=== PATIENT | female | born 1975 | race American Indian/Alaskan Native ===

== ENCOUNTER 2020-09-20 18:36 | Emergency (ER) | payer SELFPAY ==
[2020-09-20 18:44] VITALS: BP 117/63
--- NOTE | 2020-09-20 18:53 | Event Note ---
ED Screening Note ED Screening Note: BG 470 at home has not had her insulin since March units at night ozembic weekly states she moved here from [place] and has not set up PCP in [place] no n/v/d no fever no recent illness states she had some lightheadedness and knew her sugar was high allergy: sulfa hysterectomy This initial assessment/diagnostic orders/clinical plan/treatment(s) is/are subject to change based on patients health status, clinical progression and re- assessment by fellow clinical providers in the ED. Further treatment and workup at subsequent clinical providers discretion. Patient/guardian urged not to elope from the ED as their condition may be serious if not clinically assessed and managed. Initial orders include: labs, UA
[2020-09-20 19:36] LABS: Basophils % (Auto) 0.8 % (0.0-1.8); Eosinophils % (Auto) 0.9 % (0.0-4.3); Hematocrit 39.8 % (30.3-42.9); Hemoglobin 13.2 gm/dl (10.1-14.3); Lymphocytes # (Auto) 2.3 K/mm3 (1.2-5.4); Lymphocytes % (Auto) 48.1 % (13.4-35.0); Mean Corpuscular HGB Conc 33 % (30-34); Mean Corpuscular Volume 86 fl (79-97); Monocytes # (Auto) 0.4 K/mm3 (0.0-0.8); Monocytes % (Auto) 9.2 % (0.0-7.3); Platelet Count 269 K/mm3 (140-440); Red Blood Count 4.66 M/mm3 (3.65-5.03); Red Cell Distribution Width 13.6 % (13.2-15.2)
[2020-09-20 19:40] LABS: Bacteria,Urine 1+ /HPF (Negative); Bilirubin,Urine NEG (Negative); Blood,Urine NEG (Negative); Color,Urine Yellow (Yellow); Mucus,Urine FEW /HPF; Protein,Urine <15 mg/dL mg/dL (Negative); Urobilinogen,Urine < 2.0 mg/dL (<2.0)
[2020-09-20 19:44] LABS: Alanine Aminotransferase 23 units/L (7-56); Albumin 3.8 g/dL (3.9-5); BUN/Creatinine Ratio 12; Blood Urea Nitrogen 12 mg/dL (7-17); Hemolysis Index 3
[2020-09-20] MEDS ORDERED: INSULIN REGULAR, HUMAN 100 UNITS/1 ML IV ONE (19:52)
[2020-09-20] MEDS ORDERED: SODIUM CHLORIDE 0.9% 1000 ML 1,000 ML IV ONE (19:52)
--- NOTE | 2020-09-20 20:25 | Emergency Department Report ---
- General Chief complaint: Hyperglycemia Stated complaint: BLOOD GLUCOSE LEVEL HIGH Time Seen by Provider: 09/20/20 18:50 Source: patient Mode of arrival: Ambulatory Limitations: No Limitations - History of Present Illness Initial comments: This is a 45-year-old female nontoxic, well nourished in appearance, no acute signs of distress presents to the ED with c/o of generalized weakness and dizziness x1 day. Patient stated she has been out of her insulin the past few months due to no primary care doctor and just moved from [place]. Patient stated with symptoms of dizziness occurs it is related to her glucose being elevated. Patient that her fingerstick at home was in the high 400s. Denies taking any medication for this prior to arrival to the ED. Patient denies any headache or head trauma. Patient stated the dizziness is worsened with position change. Patient denies any numbness, tingling, headache, stiff neck, chest pain, shortness of breathe, numbness or tingling. Denies any visual changes or blurry vision. Said allergies to sulfa. MD Complaint: generalized weakness -: days(s) Location: generalized Severity scale (0 -10): 0 Consistency: intermittent Improves with: none Worsens with: none Associated Symptoms: denies other symptoms. denies: chest pain, confusion, dark stools, diaphoresis, dysuria, easy bruising, fever/chills, headaches, loss of appetite, nausea/vomiting, myalgias, rash, shortness of breath, syncope - Related Data Previous Rx's Medication Instructions Recorded Last Taken Type Insulin Glargine,Hum.rec.anlog 55 unit SQ HS 30 Days #1 box 09/20/20 Unknown Rx [Basaglar Kwikpen U-100] Semaglutide [Ozempic] 0.25 mg SQ QWEEK #4 pen.injctr 09/20/20 Unknown Rx Allergies Allergy/AdvReac Type Severity Reaction Status Date / Time Sulfa (Sulfonamide Allergy Swelling Verified 09/20/20 18:40 Antibiotics) ED Review of Systems ROS: Stated complaint: BLOOD GLUCOSE LEVEL HIGH Other details as noted in HPI Comment: All other systems reviewed and negative Constitutional: denies: chills, fever Eyes: denies: eye pain, eye discharge, vision change ENT: denies: ear pain, throat pain Respiratory: denies: cough, shortness of breath, wheezing Cardiovascular: denies: chest pain, palpitations Endocrine: no symptoms reported Gastrointestinal: denies: abdominal pain, nausea, diarrhea Genitourinary: denies: urgency, dysuria, discharge Musculoskeletal: denies: back pain, joint swelling, arthralgia Skin: denies: rash, lesions Neurological: weakness, vertigo. denies: headache, numbness, paresthesias, confusion, abnormal gait Psychiatric: denies: anxiety, depression Hematological/Lymphatic: denies: easy bleeding, easy bruising ED Past Medical Hx - Past Medical History Hx Diabetes: Yes Hx Asthma: Yes Additional medical history: SARCODOSIS - Surgical History Hx Pacemaker: Yes Hx Internal Defibrillator: Yes - Social History Smoking Status: Never Smoker Substance Use Type: None - Medications Home Medications: Home Medications Medication Instructions Recorded Confirmed Last Taken Type Insulin Glargine,Hum.rec.anlog 55 unit SQ HS 30 Days #1 box 09/20/20 Unknown Rx [Basaglar Kwikpen U-100] Semaglutide [Ozempic] 0.25 mg SQ QWEEK #4 pen.injctr 09/20/20 Unknown Rx ED Physical Exam - General Limitations: No Limitations General appearance: alert, in no apparent distress - Head Head exam: Present: atraumatic, normocephalic - Eye Eye exam: Present: normal appearance, PERRL, EOMI - ENT ENT exam: Present: normal exam, normal orophraynx - Neck Neck exam: Present: normal inspection, full ROM. Absent: tenderness, meningismus, lymphadenopathy - Respiratory Respiratory exam: Present: normal lung sounds bilaterally. Absent: respiratory distress, wheezes, rales, rhonchi, stridor, chest wall tenderness, accessory muscle use, decreased breath sounds, prolonged expiratory - Cardiovascular Cardiovascular Exam: Present: regular rate, normal rhythm, normal heart sounds. Absent: bradycardia, tachycardia, irregular rhythm, systolic murmur, diastolic murmur, rubs, gallop - GI/Abdominal GI/Abdominal exam: Present: soft, normal bowel sounds. Absent: distended, tenderness, guarding, rebound, rigid, diminished bowel sounds - Extremities Exam Extremities exam: Present: normal inspection, full ROM - Back Exam Back exam: Present: normal inspection, full ROM. Absent: tenderness, CVA tenderness (R), CVA tenderness (L), muscle spasm, paraspinal tenderness, vertebral tenderness, rash noted - Neurological Exam Neurological exam: Present: alert, oriented X3, normal gait - Expanded Neurological Exam Expanded Patient oriented to: Present: person, place, time Cranial nerves: EOM's Intact: Normal, Facial Sensation: Normal Cerebellar function: Finger to Nose: Normal Upper motor neuron: Sensory Extinction: Normal Motor strength exam: RUE: 5, LUE: 5, RLE: 5, LLE: 5 Best Eye Response (Fabio): (4) open spontaneously Best Motor Response ([place]): (6) obeys commands Best Verbal Response ([place]): (5) oriented Fabio Total: 15 - Psychiatric Psychiatric exam: Present: normal affect, normal mood - Skin Skin exam: Present: warm, dry, intact, normal color. Absent: rash - Level of Consciousness 1a. Level of Consciousness: alert/keenly responsive - LOC Questions 1b. LOC Questions: answers both correctly - LOC Command 1c. LOC Commands: performs tasks correctly - Best Gaze 2. Best Gaze: normal - Visual 3. Visual: no visual loss - Facial Palsy 4. Facial Palsy: normal symmetrical movement - Motor Arm 5a. Motor Arm Left: no drift 5b. Motor Arm Right: no drift - Motor Leg 6a. Motor Leg Left: no drift 6b. Motor Leg Right: no drift - Limb Ataxia 7. Limb Ataxia: absent - Sensory 8. Sensory: normal - Best Language 9. Best Language: no aphasia - Dysarthria 10. Dysarthria: normal - Extinction and Inattention 11. Extinction/Inattention: no abnormality - Scoring Total Score: 0 Stroke Severity: No Stroke Symptoms ED Course Vital Signs 09/20/20 09/20/20 18:40 20:56 Temperature 98 F Pulse Rate 68 Respiratory 20 18 Rate Blood Pressure 117/63 O2 Sat by Pulse 96 Oximetry - Reevaluation(s) Reevaluation #1: 09/20/20 20:23 Patient is speaking in full sentences with no signs of distress noted. ED Medical Decision Making - Lab Data Result diagrams: 09/20/20 19:13 09/20/20 19:13 Lab Results 09/20/20 09/20/20 09/20/20 Range/Units 18:44 19:13 19:13 WBC 4.8 (4.5-11.0) K/mm3 RBC 4.66 (3.65-5.03) M/mm3 Hgb 13.2 (10.1-14.3) gm/dl Hct 39.8 (30.3-42.9) % MCV 86 (79-97) fl MCH 28 (28-32) pg MCHC 33 (30-34) % RDW 13.6 (13.2-15.2) % Plt Count 269 (140-440) K/mm3 Lymph % (Auto) 48.1 H (13.4-35.0) % [place] % (Auto) 9.2 H (0.0-7.3) % Eos % (Auto) 0.9 (0.0-4.3) % Baso % (Auto) 0.8 (0.0-1.8) % Lymph # (Auto) 2.3 (1.2-5.4) K/mm3 [place] # (Auto) 0.4 (0.0-0.8) K/mm3 Eos # (Auto) 0.0 (0.0-0.4) K/mm3 Baso # (Auto) 0.0 (0.0-0.1) K/mm3 Seg Neutrophils % 41.0 (40.0-70.0) % Seg Neutrophils # 2.0 (1.8-7.7) K/mm3 VBG pH (7.320-7.420) Sodium 134 L (137-145) mmol/L Potassium 4.0 (3.6-5.0) mmol/L Chloride 97.5 L (98-107) mmol/L Carbon Dioxide 27 (22-30) mmol/L Anion Gap 14 mmol/L BUN 12 (7-17) mg/dL Creatinine 1.0 (0.6-1.2) mg/dL Estimated GFR > 60 ml/min BUN/Creatinine Ratio 12 % Glucose 290 H (65-100) mg/dL POC Glucose 300 H (70-105) mg/dL Calcium 9.0 (8.4-10.2) mg/dL Total Bilirubin 0.30 (0.1-1.2) mg/dL AST 19 (5-40) units/L ALT 23 (7-56) units/L Alkaline Phosphatase 96 (35-129) units/L Total Protein 7.9 (6.3-8.2) g/dL Albumin 3.8 L (3.9-5) g/dL Albumin/Globulin Ratio 0.9 % Urine Color (Yellow) Urine Turbidity (Clear) Urine pH (5.0-7.0) Ur Specific [place] (1.003-1.030) Urine Protein (Negative) mg/dL Urine Glucose (UA) (Negative) mg/dL Urine Ketones (Negative) mg/dL Urine Blood (Negative) Urine Nitrite (Negative) Urine Bilirubin (Negative) Urine Urobilinogen (<2.0) mg/dL Ur Leukocyte Esterase (Negative) Urine WBC (Auto) (0.0-6.0) /HPF Urine RBC (Auto) (0.0-6.0) /HPF U Epithel Cells (Auto) (0-13.0) /HPF Urine Bacteria (Auto) (Negative) /HPF Urine Mucus /HPF 09/20/20 09/20/20 Range/Units 19:13 Unknown WBC (4.5-11.0) K/mm3 RBC (3.65-5.03) M/mm3 Hgb (10.1-14.3) gm/dl Hct (30.3-42.9) % MCV (79-97) fl MCH (28-32) pg MCHC (30-34) % RDW (13.2-15.2) % Plt Count (140-440) K/mm3 Lymph % (Auto) (13.4-35.0) % [place] % (Auto) (0.0-7.3) % Eos % (Auto) (0.0-4.3) % Baso % (Auto) (0.0-1.8) % Lymph # (Auto) (1.2-5.4) K/mm3 [place] # (Auto) (0.0-0.8) K/mm3 Eos # (Auto) (0.0-0.4) K/mm3 Baso # (Auto) (0.0-0.1) K/mm3 Seg Neutrophils % (40.0-70.0) % Seg Neutrophils # (1.8-7.7) K/mm3 VBG pH 7.349 (7.320-7.420) Sodium (137-145) mmol/L Potassium (3.6-5.0) mmol/L Chloride (98-107) mmol/L Carbon Dioxide (22-30) mmol/L Anion Gap mmol/L BUN (7-17) mg/dL Creatinine (0.6-1.2) mg/dL Estimated GFR ml/min BUN/Creatinine Ratio % Glucose (65-100) mg/dL POC Glucose (70-105) mg/dL Calcium (8.4-10.2) mg/dL Total Bilirubin (0.1-1.2) mg/dL AST (5-40) units/L ALT (7-56) units/L Alkaline Phosphatase (35-129) units/L Total Protein (6.3-8.2) g/dL Albumin (3.9-5) g/dL Albumin/Globulin Ratio % Urine Color Yellow (Yellow) Urine Turbidity Slightly-cloudy (Clear) Urine pH 5.0 (5.0-7.0) Ur Specific [place] 1.029 (1.003-1.030) Urine Protein <15 mg/dl (Negative) mg/dL Urine Glucose (UA) >=500 (Negative) mg/dL Urine Ketones Neg (Negative) mg/dL Urine Blood Neg (Negative) Urine Nitrite Neg (Negative) Urine Bilirubin Neg (Negative) Urine Urobilinogen < 2.0 (<2.0) mg/dL Ur Leukocyte Esterase Neg (Negative) Urine WBC (Auto) 2.0 (0.0-6.0) /HPF Urine RBC (Auto) 4.0 (0.0-6.0) /HPF U Epithel Cells (Auto) 19.0 H (0-13.0) /HPF Urine Bacteria (Auto) 1+ (Negative) /HPF Urine Mucus Few /HPF - Medical Decision Making This is a 45-year-old female that presents with dizziness with noncompliant with insulin medications. Patient is stable and was examined by me. Labs are unremarkable. Urine obtained. Patient received 1 L of normal saline which she stated his symptoms of dizziness has subsided and resolved. Finger stock decreased to 193 prior to discharge. Will refill patients medication which she told me which ones and dosage. Patient is neurologically stable. Patient was instructed to Follow-up with a primary care doctor in 3-5 days or if symptoms worsen and continue return to emergency room as soon as possible. At time of discharge, the patient does not seem toxic or ill in appearance. No acute signs of distress noted. Patient agrees to discharge treatment plan of care. No further questions noted by the patient. Critical care attestation.: If time is entered above; I have spent that time in minutes in the direct care of this critically ill patient, excluding procedure time. ED Disposition Clinical Impression: Dizziness, Noncompliance with diabetes treatment, Hyperglycemia Disposition: DC- TO HOME OR SELFCARE Is pt being admited?: No Does the pt Need Aspirin: No Condition: Stable Instructions: Hyperglycemia, [id number], Dizziness Additional Instructions: Follow-up with a primary care doctor in 3-5 days or if symptoms worsen and continue return to emergency room as soon as possible. Prescriptions: Insulin Glargine,Hum.rec.anlog [Basaglar Kwikpen U-100] 55 unit SQ HS 30 Days #1 box Semaglutide [Ozempic] 0.25 mg SQ QWEEK #4 pen.injctr Referrals: [facility] MD DONATO [Primary Care Provider] - 3-5 Days PRIMARY CAREMD [Referring] - 3-5 Days FRANCINE FRANCISCO MD [Staff Physician] - 3-5 Days [facility] [place][Note 3] [Outside] - 3-5 Days [facility] [Provider Group] - 3-5 Days Time of Disposition: 21:12
== END 2020-09-20 21:42 | disposition home or self-care (01) ==
LOC: ED 18:36
DX: E11.65 Type 2 diabetes mellitus with hyperglycemia (principal); R42 Dizziness and giddiness; J45.909 Unspecified asthma, uncomplicated; Z79.899 Other long term (current) drug therapy; Z88.2 Allergy status to sulfonamides; Z95.0 Presence of cardiac pacemaker; Z91.19 Patient's noncompliance with other medical treatment and regimen
CPT/HCPCS: 36415; 80053; 81001; 82805; 82962; 85025; 96360; 99283; J7030; J1815

== ENCOUNTER 2021-11-01 13:47 | Emergency (ER) | payer SELFPAY ==
[2021-11-01] MEDS ORDERED: SODIUM CHLORIDE 0.9% 1000 ML 2,000 ML IV ONE (15:22)
--- NOTE | 2021-11-01 15:30 | Emergency Department Report ---
ED General Adult HPI - General Chief complaint: Weakness Stated complaint: WEAKNESS/SOB PUI?: No Time Seen by Provider: 11/01/21 15:18 Source: patient, EMS ( EMS documentation not available at time of chart dictation ), RN notes reviewed Mode of arrival: Stretcher Limitations: No Limitations - History of Present Illness Initial comments: This patient is a pleasant cooperative 46-year-old female, who has a history of hysterectomy, prophylactic AICD in place, distant history of V. tach, currently follow-up with [facility] cardiology, also has a history of diabetes, hypertension, currently maintained on isosorbide mononitrate metoprolol, lisinopril, presents to the ER today with complaint of lightheadedness, dizziness and near syncope. This happened while she was in the bathroom. She denies physical pain. She denies travel, surgery, immobilization, DVT/PE risk factors. She denies hematemesis and bright red blood per rectum. She feels mildly short of breath which is new for her. She does report chronic sarcoid, but feels like her shortness of breath feels "different." During the history and physical examination, I am chaperoned by nurse Carly Richmond -: Sudden Severity scale (0 -10): 0 Consistency: constant Improves with: rest Worsens with: movement - Related Data Previous Rx's Medication Instructions Recorded Last Taken Type Insulin Glargine,Hum.rec.anlog 55 unit SQ HS 30 Days #1 box 09/20/20 Unknown Rx [Basaglar Kwikpen U-100] Semaglutide [Ozempic] 0.25 mg SQ QWEEK #4 pen.injctr 09/20/20 Unknown Rx Allergies Allergy/AdvReac Type Severity Reaction Status Date / Time Sulfa (Sulfonamide Allergy Swelling Verified 11/01/21 13:53 Antibiotics) ED Review of Systems ROS: Stated complaint: WEAKNESS/SOB Other details as noted in HPI Constitutional: denies: fever Eyes: denies: eye discharge Respiratory: shortness of breath Cardiovascular: syncope (Lightheadedness and near syncope). denies: chest pain Gastrointestinal: denies: abdominal pain, hematemesis, melena, hematochezia Genitourinary: denies: dysuria Musculoskeletal: denies: back pain Neurological: weakness Hematological/Lymphatic: denies: easy bleeding ED Past Medical Hx - Past Medical History Hx Diabetes: Yes Hx Asthma: Yes Additional medical history: SARCODOSIS - Surgical History Hx Pacemaker: Yes Hx Internal Defibrillator: Yes - Social History Smoking Status: Never Smoker Substance Use Type: None - Medications Home Medications: Home Medications Medication Instructions Recorded Confirmed Last Taken Type Insulin Glargine,Hum.rec.anlog 55 unit SQ HS 30 Days #1 box 09/20/20 Unknown Rx [Basaglar Kwikpen U-100] Semaglutide [Ozempic] 0.25 mg SQ QWEEK #4 pen.injctr 09/20/20 Unknown Rx ED Physical Exam - General Limitations: No Limitations General appearance: alert, in no apparent distress - Head Head exam: Present: atraumatic, normocephalic - Eye Eye exam: Present: normal appearance, EOMI. Absent: nystagmus - ENT ENT exam: Present: normal exam, normal orophraynx, mucous membranes moist, normal external ear exam - Neck Neck exam: Present: normal inspection, full ROM. Absent: tenderness, meningismus - Respiratory Respiratory exam: Present: normal lung sounds bilaterally. Absent: respiratory distress, wheezes, rales, rhonchi, stridor, decreased breath sounds - Cardiovascular Cardiovascular Exam: Present: regular rate, normal rhythm, normal heart sounds. Absent: bradycardia, tachycardia, irregular rhythm, systolic murmur, diastolic murmur, rubs, gallop - GI/Abdominal GI/Abdominal exam: Present: soft. Absent: distended, tenderness, guarding, rebound, rigid, pulsatile mass - Extremities Exam Extremities exam: Present: normal inspection, full ROM, other (2+ pulses noted in the bilateral upper and lower extremities. There is no palpable cord. negative Homans sign. Muscular compartments are soft. The pelvis is stable.). Absent: pedal edema, calf tenderness - Back Exam Back exam: Present: normal inspection, full ROM. Absent: tenderness, CVA tenderness (R), CVA tenderness (L), paraspinal tenderness, vertebral tenderness - Neurological Exam Neurological exam: Present: alert, other (No facial droop. Tongue midline. Extraocular movements intact bilaterally. Facial sensation intact to light touch in V1, V2, V3 distribution bilaterally. 5 and a 5 strength in 4 extremities. Sensation intact to light touch in 4 extremities.). Absent: motor sensory deficit - Psychiatric Psychiatric exam: Present: normal affect, normal mood - Skin Skin exam: Present: warm, dry, intact, normal color. Absent: rash ED Course Vital Signs 11/01/21 11/01/21 11/01/21 13:50 15:04 15:15 Temperature 99.0 F Pulse Rate 72 66 69 Pulse Rate [ Lying] Pulse Rate [ Sitting] Pulse Rate [ Standing] Respiratory 16 19 27 H Rate Blood Pressure 87/56 Blood Pressure 85/54 [Left] Blood Pressure [Lying] Blood Pressure [Sitting] Blood Pressure [Standing] O2 Sat by Pulse 97 98 97 Oximetry 11/01/21 11/01/21 11/01/21 15:18 15:31 15:45 Temperature Pulse Rate 69 77 Pulse Rate [ 63 Lying] Pulse Rate [ 72 Sitting] Pulse Rate [ 84 Standing] Respiratory 15 14 Rate Blood Pressure 89/62 89/62 Blood Pressure [Left] Blood Pressure 93/59 [Lying] Blood Pressure 89/57 [Sitting] Blood Pressure 93/59 [Standing] O2 Sat by Pulse 100 95 94 Oximetry 11/01/21 11/01/21 11/01/21 16:01 16:15 16:31 Temperature Pulse Rate 70 77 80 Pulse Rate [ Lying] Pulse Rate [ Sitting] Pulse Rate [ Standing] Respiratory 11 L 19 15 Rate Blood Pressure 89/62 89/62 85/55 Blood Pressure [Left] Blood Pressure [Lying] Blood Pressure [Sitting] Blood Pressure [Standing] O2 Sat by Pulse 96 96 95 Oximetry 11/01/21 11/01/21 11/01/21 16:45 17:01 17:15 Temperature Pulse Rate 81 74 76 Pulse Rate [ Lying] Pulse Rate [ Sitting] Pulse Rate [ Standing] Respiratory 16 16 14 Rate Blood Pressure 85/55 92/59 92/59 Blood Pressure [Left] Blood Pressure [Lying] Blood Pressure [Sitting] Blood Pressure [Standing] O2 Sat by Pulse 95 97 78 L Oximetry 11/01/21 11/01/21 11/01/21 17:52 18:00 18:16 Temperature Pulse Rate 70 72 72 Pulse Rate [ Lying] Pulse Rate [ Sitting] Pulse Rate [ Standing] Respiratory 14 16 Rate Blood Pressure 94/60 94/60 Blood Pressure [Left] Blood Pressure [Lying] Blood Pressure [Sitting] Blood Pressure [Standing] O2 Sat by Pulse 95 97 Oximetry - Reevaluation(s) Reevaluation #1: 11/01/21 16:37 Differential diagnosis, including but not limited to: Orthostasis, vagal event, pulmonary embolism, structural cardiac disease, iatrogenic hypertension, acute coronary syndrome, arrhythmia Assessment and plan: 46-year-old female, who is afebrile, not currently tachycardic, tachypneic or hypoxic, denies DVT/PE risk factors, who is low risk by Wells criteria for pulmonary embolism, and PERC negative, coming with lightheadedness and near syncope, with hypotension. Placed patient on surg physician asst. Obtain appropriate laboratory studies. Chest x-ray clear. EKG nonspecific, but not consistent with STEMI. She has a [employer] ICD device, have requested that they come by and interrogate the device. Start IV fluids, reassess. Discussed this with the patient. She articulates understanding. She is agreeable to the plan of care. All questions answered. 11/01/21 17:27 D-dimer negative. Troponin negative. Chest x-ray clear. ICD interrogation unremarkable. Blood pressure currently 92 systolic. Patient updated. Repeat EKG, repeat troponin pending. Suspect orthostasis, likely secondary to multiple antihypertensives. Discussed this with the patient. Reassess after additional IV fluids, repeat troponin, and repeat EKG have been obtained 11/01/21 18:30 Patient reported to nursing team that her blood pressure "always runs low." Heart rate 72 bpm, blood pressure 100/73 mmHg. Troponin negative x2, and EKG unchanged from prior. 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 Not to drive or operate motor vehicles until cleared to do so by primary care or cardiology, discontinue all blood pressure medications, closely follow-up with outpatient primary care and cardiology. I discussed this with the patient. She articulates understanding. All questions answered. Return precautions are reviewed 11/01/21 18:49 Discussed the patient's history, physical, laboratory studies and imaging studies and clinical impression with cardiology on-call, Dr. Kemp. Advises that patient continue metoprolol, 25 mg once daily, but discontinue all other blood pressure medications. Patient advised to hold metoprolol for blood pressure less than 90 mmHg systolic, and advised to call [facility] first thing tomorrow morning to arrange close outpatient follow-up. Return precautions are reviewed. All questions answered Patient also advised to hold all blood pressure medications tonight 11/01/21 18:55 ED Medical Decision Making - Lab Data Result diagrams: 11/01/21 15:55 11/01/21 15:55 Vital Signs 11/01/21 11/01/21 11/01/21 13:50 15:04 15:15 Temperature 99.0 F Pulse Rate 72 66 69 Pulse Rate [ Lying] Pulse Rate [ Sitting] Pulse Rate [ Standing] Respiratory 16 19 27 H Rate Blood Pressure 87/56 Blood Pressure 85/54 [Left] Blood Pressure [Lying] Blood Pressure [Sitting] Blood Pressure [Standing] O2 Sat by Pulse 97 98 97 Oximetry 11/01/21 11/01/21 11/01/21 15:18 15:31 15:45 Temperature Pulse Rate 69 77 Pulse Rate [ 63 Lying] Pulse Rate [ 72 Sitting] Pulse Rate [ 84 Standing] Respiratory 15 14 Rate Blood Pressure 89/62 89/62 Blood Pressure [Left] Blood Pressure 93/59 [Lying] Blood Pressure 89/57 [Sitting] Blood Pressure 93/59 [Standing] O2 Sat by Pulse 100 95 94 Oximetry 11/01/21 16:01 Temperature Pulse Rate 70 Pulse Rate [ Lying] Pulse Rate [ Sitting] Pulse Rate [ Standing] Respiratory 11 L Rate Blood Pressure 89/62 Blood Pressure [Left] Blood Pressure [Lying] Blood Pressure [Sitting] Blood Pressure [Standing] O2 Sat by Pulse 96 Oximetry Lab Results 11/01/21 11/01/21 Range/Units 15:55 15:55 WBC 6.3 (4.5-11.0) K/mm3 RBC 4.58 (3.65-5.03) M/mm3 Hgb 12.7 (10.1-14.3) gm/dl Hct 39.1 (30.3-42.9) % MCV 85 (79-97) fl MCH 28 (28-32) pg MCHC 32 (30-34) % RDW 13.2 (13.2-15.2) % Plt Count 270 (140-440) K/mm3 PT 13.9 (12.2-14.9) Sec. INR 0.97 (0.87-1.13) - EKG Data -: EKG Interpreted by Nd EKG shows normal: sinus rhythm Rate: normal - EKG Data 11/01/21 16:33 The EKG is interpreted at 15: 08 Sinus rhythm 69 bpm. Left axis deviation, left anterior fascicular block, normal P wave axis, left ventricular voltage. QTC 4 3 3 ms. Abnormal EKG. Not a STEMI. No prior for comparison - Radiology Data Radiology results: pending, report reviewed, image reviewed CHEST 1 VIEW 11/01/2021 3:35 PM INDICATION / CLINICAL INFORMATION: dtspnea hx of sarcoid. COMPARISON: None available. FINDINGS: SUPPORT DEVICES: Stable, satisfactory device positioning. HEART / MEDIASTINUM: No significant abnormality. LUNGS / PLEURA: No significant pulmonary or pleural abnormality. No pneumothorax. ADDITIONAL FINDINGS: No significant additional findings. IMPRESSION: 1. No acute findings. Signer Name: Raymond Saldana MD Signed: 11/01/2021 2:49 PM Workstation Name: [employer] Critical care attestation.: If time is entered above; I have spent that time in minutes in the direct care of this critically ill patient, excluding procedure time. ED Disposition Clinical Impression: Lightheadedness, AICD (automatic cardioverter/defibrillator) present, Shortness of breath, Low blood pressure Disposition: 01 HOME / SELF CARE / HOMELESS Is pt being admited?: No Does the pt Need Aspirin: No Condition: Good Additional Instructions: Recommend that patient temporarily discontinue all her blood pressure medications. Do not take any of your blood pressure medications tonight. Check your blood pressure first thing tomorrow morning. If less than 95 mmHg systolic, do not take any of your blood pressure medications. If greater than 100 mmHg systolic, may start metoprolol succinate, 25 mg once daily. Please contact your melter supervisor first thing tomorrow morning to arrange outpatient follow-up. Please drink at least 4 cups of water per day, and consume a low-salt diet. Do not drive or operate motor vehicles until cleared to do so by your primary care doctor or melter supervisor. Please return to the emergency room right away with new pain, worsened pain, migration of pain, projectile vomiting, change in mental status, confusion, inability tolerate liquid feeds, new, worsened or different symptoms not present on the initial emergency room evaluation Referrals: HEIDI ARGUETA MD [Primary Care Provider] - 3-5 Days [facility] [Provider Group] - 3-5 Days [facility] [Provider Group] - 3-5 Days Forms: Work/School Release Form(ED)
--- NOTE | 2021-11-01 15:55 | XRay Report ---
CHEST 1 VIEW 11/01/2021 3:35 PM INDICATION / CLINICAL INFORMATION: dtspnea hx of sarcoid. COMPARISON: None available. FINDINGS: SUPPORT DEVICES: Stable, satisfactory device positioning. HEART / MEDIASTINUM: No significant abnormality. LUNGS / PLEURA: No significant pulmonary or pleural abnormality. No pneumothorax. ADDITIONAL FINDINGS: No significant additional findings. IMPRESSION: 1. No acute findings. Signer Name: Raymond Saldana MD Signed: 11/01/2021 3:49 PM Workstation Name: [employer]
[2021-11-01 16:16] LABS: Hematocrit 39.1 % (30.3-42.9); Hemoglobin 12.7 gm/dl (10.1-14.3); Mean Corpuscular HGB Conc 32 % (30-34); Mean Corpuscular Volume 85 fl (79-97); Platelet Count 270 K/mm3 (140-440); Red Blood Count 4.58 M/mm3 (3.65-5.03); Red Cell Distribution Width 13.2 % (13.2-15.2)
[2021-11-01 16:27] LABS: INR 0.97 (0.87-1.13)
[2021-11-01 16:49] LABS: Alanine Aminotransferase 30 units/L (7-56); Albumin 3.8 g/dL (3.9-5); BUN/Creatinine Ratio 15; Blood Urea Nitrogen 16 mg/dL (7-17); Calcium 9.3 mg/dL (8.4-10.2); Hemolysis Index 2
[2021-11-01] MEDS ORDERED: SODIUM CHLORIDE 0.9% 1000 ML 1,000 ML IV ONE (17:07)
[2021-11-01 20:26] VITALS: BP 120/73
--- NOTE | 2021-11-02 10:25 | Electrocardiograph Report ---
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
--- NOTE | 2021-11-02 10:26 | Electrocardiograph Report ---
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
== END 2021-11-01 20:20 | disposition home or self-care (01) ==
LOC: ED 13:47
DX: R42 Dizziness and giddiness (principal); T82.9XXA Unspecified complication of cardiac and vascular prosthetic device, implant and graft, initial encounter; R06.02 Shortness of breath; R03.1 Nonspecific low blood-pressure reading; Z88.2 Allergy status to sulfonamides; J45.909 Unspecified asthma, uncomplicated; E11.9 Type 2 diabetes mellitus without complications
CPT/HCPCS: 36415; 71045; 80053; 82550; 83735; 84443; 84484; 85027; 85379; 85610; 93005; 96360; 96361; 99284; J7030